=== PATIENT | female | born 1930 | race Caucasian/White ===

== ENCOUNTER 2016-11-06 10:12 | Emergency (ER) | payer MEDICARE, OTHER ==
[~2016-11-06 10:12] MED LIST: ASPI-973 PO; ATOR10TA66 PO; IPRA30SP8 NASAL; LISI-571 PO; METO-272 PO
--- NOTE | 2016-11-06 10:22 | ED.REPORT ---
HPI-Abd Pain F 40 and Over Date of Service Nov 06, 2016 ED Provider: Alcides Palomo MD Patient is an 86 year old female who presents to the ED via EMS complaining of abdominal pain onset 3 days ago. Associated symptoms include watery stool. She denies vomiting, fever, or any other symptoms. She has had a previous bowel obstruction and reports that these are similar symptoms. Nursing Notes Stated Complaint: ABDOMINAL PAIN Nursing Notes Reviewed: Yes Allergies: Coded Allergies: cilostazol (Verified Allergy, Severe, throat and lips swelling, 11/06/16) meperidine (Verified Allergy, Unknown, 11/06/16) latex (Verified Adverse Reaction, Intermediate, bandaid pulls off skin, 11/06/16) only problem is with bandaid Scheduled Aspirin (Aspirin) 81 Mg Tablet 81 MG PO DAILY Atorvastatin Calcium (Atorvastatin Calcium) 10 Mg Tablet 10 MG PO Q2DAY Ipratropium Roland (Ipratropium Roland 0.03% Nasal) 30 Ml [place] 1 SPRAY NASAL QAM Lisinopril (Lisinopril) 5 Mg Tablet 5 MG PO BID Metoprolol Succinate ER (Metoprolol Succinate ER) 50 Mg Tab.er.24h 100 MG PO DAILY Supposed to change to 200mg daily but hasn't filled prescription yet. General Time Seen by MD: 10:14 Chief Complaint Abdominal pain Hx Obtained From: Patient Arrived By: Ambulance Sudden in Onset?: Yes Onset Occurred: 3 days ago Symptom Duration: Since onset Similar Sx Previous: Yes Risk Factors )( AAA Risk Stratification HypertensionNo Smoking Risk factors reviewed Past Medical History Past Medical History Notes: Code Status: Will accept electrocardioversion and CPR, does not want intubation or artificial ventilation. Past Medical History Hypertension Small bowel obstruction due to adhesions Chronic fatigue syndrome CVA GERD (gastroesophageal reflux disease) Allergic rhinitis Right external carotid stenosis Recurrent syncope Ventricular tachycardia Anxiety Reports: Cancer (Skin ), Stroke, Denies: Diabetes mellitus Reports: Depression Past Surgical History Bowel adhesion surgeries x2 Single chamber internal cardioverter-defibrillator implant 02/22/2016 Esophagogastroduodenoscopy 2013 AICD replacement Reports: Cholecystectomy, Hysterectomy Family History Mother had Colon Cancer Father had NH but lived till his 90s Smoking History Former Smoker Social History Other Social History: Good social support, Local resident Ambulatory Status Independent Review of Systems Constitutional: Denies: Chills, Fever GI: Reports: Abdominal pain, Diarrhea, Denies: Vomiting Complete sys rev & neg: except as marked. Physical Exam Vital Signs Vital Signs (First) Date Time Temp Pulse Resp B/P Pulse Ox O2 Delivery O2 Flow Rate FiO2 11/06/16 10:23 35.9 66 12 160/65 100 Room Air Initial VS: Reviewed Head / Eyes: Atraumatic, Normocephalic Skin: Warm, Dry Neurologic: Alert, Oriented, Nonfocal Psychiatric: Mood/affect normal, Behavior normal, Normal thought content General/Constitutional: Awake, Alert, Well developed Respiratory / Chest: Breath sounds NL, Breath sounds = bilat, No respiratory distress Cardiovascular: Heart rate NL, Regular rhythm, Heart sounds NL Tenderness/Guarding/Rebound: Positive: Tender diffuse Rushing bowel sounds Guarding, mild Back: Atraumatic Interpretation & Diagnostics Lab Results Interpretation Result Diagram: 11/06/16 1101 11/06/16 1101 Test 11/06/16 11:01 White Blood Count 7.5th/mm3 (3.8-10.1) Red Blood Count 5.06mil/mm3 (3.90-5.20) Hemoglobin 15.7g/dL (12.0-15.6) Hematocrit 47.1% (35.0-46.0) Mean Corpuscular Volume 93.1fL (81-100) Mean Corpuscular Hemoglobin 31.0pg (27.0-35.0) Mean Corpuscular Hemoglobin Concent 33.3% (32.0-37.0) Red Cell Distribution Width 14.5% (12.3-15.4) Platelet Count 223bil/L (150-400) Neutrophils (%) (Auto) 70.4% (40-74) Lymphocytes (%) (Auto) 20.1% (14-46) Monocytes (%) (Auto) 8.6% (4-12) Eosinophils (%) (Auto) 0.5% (0-5) Basophils (%) (Auto) 0.3% (0-3) Sodium Level 140mEq/L (134-144) Potassium Level 4.8mEq/L (3.5-5.2) Chloride Level 102mEq/L (97-108) Carbon Dioxide Level 20mmol/L (18-29) Blood Urea Nitrogen 20mg/dL (8-27) Creatinine 0.82mg/dL (0.57-1.00) Estimat Glomerular Filtration Rate 94mL/min (>59) Glucose Level 77mg/dL (60-99) Calcium Level 9.9mg/dL (8.5-10.1) Magnesium Level 2.1mg/dL (1.6-2.6) Total Bilirubin 0.5mg/dL (0.0-1.2) Aspartate Amino Transf (AST/SGOT) 46U/L (0-50) Alanine Aminotransferase (ALT/SGPT) 30U/L (0-32) Alkaline Phosphatase 95U/L (25-165) Total Protein 7.5g/dL (6.4-8.4) Albumin 4.2g/dL (3.4-5.0) Lipase 29U/L (13-60) X-Ray Abdominal Interpretation IMPRESSION: Lung volumes are increased suggesting COPD, correlate with pulmonary functions test. Nonspecific bowel gas pattern. If patient's symptoms persist, recommend repeat imaging or CT. Dictated by: Maximino Mathew RRA Interpreted: Sofie Espinoza MD on 11/06/2016 at 12:11 Transcribed by: KARY on 11/06/2016 at 12:12 Study: 2 view Interpretation / Wet Read by: Interpret - Radiologist Re-Eval/Medical Decision Re-Evaluation/Progress #1: Time of Eval: 13:34 Re-Evaluation/Progress Note: Rechecked patient. Discussed desire for surgical consultation at bedside or as a follow up in clinic. Daughter reports that patient has fecal incontinence. Re-Evaluation/Progress #2: Time of Eval: 13:51 Re-Evaluation/Progress Note: Discussed talk with Dr. Irvin. Patient would like to follow up with a GI doctor instead of the surgeon. Discussed plan for discharge. Patient understands and agrees with plan. All questions addressed at this time. Consultation : Referral / Consult Name: Juvenal Irvin MD Consulted With: Surgeon Call Returned at: 13:43 Mines Inspector: Will see in office Note: Discussed patient's case. Albaro is busy currently but can see patient tomorrow. Counseled Regarding: Diagnosis, Lab results, Need for follow-up, When/why to return to ED Discharge & Departure Primary Impression: Abdominal pain Abdominal location: generalized Qualified Code: R10.84 - Generalized abdominal pain Additional Impression: Fecal incontinence Disposition: Home Discharge Condition All VS Reviewed: Yes Condition: Improved Patient Instructions: Acute Abdominal Pain (ED) Additional Instructions: Thank you for entrusting us with you care today. Your imaging and lab results are reassuring. Follow up with your primary care provider as soon as possible and follow up with a rotary filter operator. Return to the emergency department if you experience high fever, vomiting, your abdominal pain becomes unbearable, or you experience new or worsening symptoms. I have prescribed you hydrocodone/APAP to help manage your abdominal pain. Do not take this unless you need it, as it is a narcotic. Try 1000 mg of Tylenol every 6 hours first. I encourage you to use a fiber product every day to help maintain the consistency of your stool. Referrals: Radha Keith PA-C (PCP) copies to: Radha Keith PA-C, Kirk H MD Nov 06, 2016 10:22 ACE FIGUEROA Nov 06, 2016 10:50
[2016-11-06 10:23] VITALS: BP 160/65; PULSE 66; RESP 12; O2SAT 100
[2016-11-06] MEDS ORDERED: 0.9% Sodium Chloride 1,000 ML IV ONE (10:23)
[2016-11-06] MEDS ORDERED: Acetaminophen IV 1,000 MG in IV Premix 1 EACH IV ONE (10:25)
[2016-11-06] MEDS ORDERED: HYDROmorphone 0.5 mg/0.5 mL iSecure Syringe IVPUSH PRN (10:25)
[2016-11-06] MEDS ORDERED: Ondansetron 2 mg/mL 2 mL Inj IVPUSH PRN (10:25)
[2016-11-06] MEDS ORDERED: Pantoprazole 4 mg/mL 10 mL Inj IVPUSH ONE (10:25)
[2016-11-06 11:04] LABS: BASOPHILS % (AUTO) 0.3 % (0-3); EOSINOPHILS % (AUTO) 0.5 % (0-5); MONOCYTES % (AUTO) 8.6 % (4-12); Mean Corpuscular Volume 93.1 fL (81-100); NEUTROPHILS % (AUTO) 70.4 % (40-74); Platelet Count 223 bil/L (150-400)
[2016-11-06 11:29] LABS: Magnesium 2.1 mg/dL (1.6-2.6)
--- NOTE | 2016-11-06 12:13 | DRSVH ---
PROCEDURE: X-RAY ACUTE ABDOMINAL SERIES ([id number]) INDICATIONS: abd pain TECHNIQUE: One view chest and two views of the abdomen were acquired. COMPARISON: [facility], CR, XR CHEST 1VW, 09/03/2016, 18:54. [facility], CR , ABD ACUTE SERIES, 05/07/2013, 1:26. FINDINGS: Surgical changes and devices: Stable positioning of left chest AICD. Bilateral breast implants. Lung volumes are increased with flattening of the hemidiaphragms suggesting COPD. Chest: Lungs are clear. Heart size is normal. No pleural effusions. No pneumoperitoneum. Abdomen: There are short nondifferential air-fluid level seen within multiple bowel loops within the midabdomen otherwise bowel gas pattern is normal. Bones: No suspicious bony lesions. IMPRESSION: Lung volumes are increased suggesting COPD, correlate with pulmonary functions test. Nonspecific bowel gas pattern. If patient's symptoms persist, recommend repeat imaging or CT. Dictated by: Maximino Mathew [facility] Interpreted: Sofie Espinoza MD on 11/06/2016 at 12:11 Transcribed by: KARY on 11/06/2016 at 12:12 Approved by: Sofie Espinoza MD, PhD on 11/06/2016 at 16:25
[2016-11-06 13:48] VITALS: BP 145/40; PULSE 72; RESP 20; O2SAT 98
== END 2016-11-06 14:19 | disposition home or self-care (01) ==
LOC: EDBD 10:12 → SED 10:12
DX: R10.84 Generalized abdominal pain (principal); R15.9 Full incontinence of feces; I10 Essential (primary) hypertension; K21.9 Gastro-esophageal reflux disease without esophagitis; Z87.19 Personal history of other diseases of the digestive system; Z86.73 Personal history of transient ischemic attack (TIA), and cerebral infarction without residual deficits; Z95.810 Presence of automatic (implantable) cardiac defibrillator; Z87.891 Personal history of nicotine dependence; Z79.82 Long term (current) use of aspirin; Z88.8 Allergy status to other drugs, medicaments and biological substances; Z88.5 Allergy status to narcotic agent
CPT/HCPCS: 74022; 80053; 83690; 83735; 85025; 96361; 96365; 96375; 99285; J0131; J1170; J2405; J7030